=== PATIENT | male | born 1995 | race Caucasian/White ===

== ENCOUNTER 2017-12-08 15:18 | Emergency (ER) | payer BC ==
[~2017-12-08] VITALS: Ht 172.7 cm; Wt 49.9 kg
--- NOTE | 2017-12-08 15:33 | NUR ---
EKG delayed due to EKG machine malfunction.
--- NOTE | 2017-12-08 16:08 | NUR ---
is at bedside doing the MSE.
--- NOTE | 2017-12-08 16:30 | NUR ---
Patient's father is now at bedside.
[2017-12-08 16:35] LABS: BASOPHILS % (AUTO) 0.5 % (0.0-2.0); EOSINOPHILS # (AUTO) 0.1 K/uL (0.0-0.7); HEMATOCRIT 47.1 % (36.7-47.1); HEMOGLOBIN 16.8 g/dL (12.5-16.3); LYMPHOCYTES % (AUTO) 15.4 % (20.5-51.5); MEAN CORPUSCULAR HEMOGLOBIN 32.3 uug (23.8-33.4); MEAN CORPUSCULAR HGB CONC 36 g/dL (32.5-36.3); MEAN CORPUSCULAR VOLUME 90.5 fL (73.0-96.2); MONOCYTES # (AUTO) 0.4 K/uL (2.0-10.0); MONOCYTES % (AUTO) 6.9 % (0.0-11.0); NEUTROPHILS # (AUTO) 4.9 K/uL (1.8-8.9); NEUTROPHILS % (AUTO) 76.2 % (38.5-71.5); PLATELET COUNT (AUTO) 265 K/uL (152-348); WHITE BLOOD COUNT (AUTO) 6.4 K/uL (3.6-10.2)
--- NOTE | 2017-12-08 16:41 | NUR ---
Patient ambulated to bathroom with brisk steady gait.
[2017-12-08 16:59] LABS: BILIRUBIN,DIRECT 0.3 mg/dL (0.0-0.2); BILIRUBIN,TOTAL 1.1 mg/dL (0.2-1.0); TOTAL PROTEIN, SERUM 8.4 g/dL (6.4-8.2)
--- NOTE | 2017-12-08 17:11 | NUR ---
Patient is resting comfortably on gurney while using his cellphone intermittently, NAD, less anxious now since the father came to ER.
== END 2017-12-08 17:37 | disposition home or self-care (01) ==
LOC: ER 15:20
DX: R00.0 Tachycardia, unspecified (principal); F41.9 Anxiety disorder, unspecified
CPT/HCPCS: 36415; 70030-TC; 71045; 85025; 85730; 93005; A4663